=== PATIENT | female | born 1945 | race Caucasian/White ===

== ENCOUNTER → 2019-09-18 | Outpatient (CLI) | payer MEDICARE, OTHER ==
[~2019-09-18] MED LIST: AMIT10 PO; DICL75ER PO; OXYB5ER PO; TRAM50 PO; Unithroid100 MCG PO
[2019-09-18 15:25] LABS: Source, Urine Clean Catch
[2019-09-18 18:33] LABS: Appearance, Urine Clear (Clear); Bilirubin, Urine Neg (Neg); Blood, Urine Neg (Neg); Color, Urine Yellow (P-Yellow); Glucose Qualitative, Urine Neg (Neg); Ketones, Urine Neg (Neg); Leukocyte Esterase, Urine 2+ (Neg); Nitrite, Urine Neg (Neg); Protein, Urine Neg (Neg); Specific Gravity, Urine 1.015 (1.003-1.022); Urobilinogen, Urine NORM (Normal)
[2019-09-18 18:50] LABS: Bacteria Many /hpf; Squamous Epithelial Cells Few /hpf (Few); White Blood Cells, Urine 25-50 /hpf (0-5)
[2019-09-18 18:51] LABS: Mucus Light (0-Heavy)
== END | disposition home or self-care (01) ==
LOC: LAB 14:15 → LAB SHORT 14:15
PROVIDERS: Obstetrics & Gynecology
DX: R30.9 Painful micturition, unspecified (principal)
CPT/HCPCS: 81001; 87077; 87086; 87186

== ENCOUNTER 2019-10-10 09:13 | Day surgery (SDC) | payer MEDICARE, OTHER ==
[~2019-10-10] VITALS: Ht 149.9 cm; Wt 84.8 kg
[~2019-10-10 09:13] MED LIST changes: +B-121000 MC2 PO; +BORON PO; +Beta Carot10000 UNIT PO; +Daily Multiple1 EACH PO; +HYDCHL25 PO; +Lutein6 MG PO; +Vitamin E100 UNIT PO
--- NOTE | 2019-10-10 10:05 | NUR ---
10/10/19 Alexis Nieves CALL LIGHT WITHIN REACH.
== END 2019-10-10 11:37 | disposition home or self-care (01) ==
LOC: ORSCSDS 09:13
PROVIDERS: Ophthalmology
PROC: 08RJ3JZ Replacement of Right Lens with Synthetic Substitute, Percutaneous Approach (ICD-10-PCS; principal; 2019-10-10 10:30)
DX: H25.11 Age-related nuclear cataract, right eye (principal); I10 Essential (primary) hypertension; Z87.891 Personal history of nicotine dependence; G47.33 Obstructive sleep apnea (adult) (pediatric); E66.01 Morbid (severe) obesity due to excess calories; Z68.38 Body mass index [BMI] 38.0-38.9, adult; Z79.899 Other long term (current) drug therapy
CPT/HCPCS: J2001; J2250; J3010; J3301; J7040; V2632

== ENCOUNTER 2019-10-31 08:28 | Day surgery (SDC) | payer MEDICARE, OTHER ==
[~2019-10-31] VITALS: Ht 147.3 cm; Wt 84.6 kg
== END 2019-10-31 11:07 | disposition home or self-care (01) ==
LOC: ORSCSDS 08:28
PROVIDERS: Ophthalmology
PROC: 08RK3JZ Replacement of Left Lens with Synthetic Substitute, Percutaneous Approach (ICD-10-PCS; principal; 2019-10-31 10:00)
DX: H25.12 Age-related nuclear cataract, left eye (principal); I10 Essential (primary) hypertension; E66.01 Morbid (severe) obesity due to excess calories; Z68.39 Body mass index [BMI] 39.0-39.9, adult; Z79.899 Other long term (current) drug therapy
CPT/HCPCS: J2001; J2250; J3010; J3301; V2632

== ENCOUNTER 2020-08-19 10:46 | Day surgery (SDC) | payer MEDICARE | END 2020-08-20 14:31 | LOC: ORSCMMR 10:46 → SURS 18:33 | PROC: 0SRD0JA Replacement of Left Knee Joint with Synthetic Substitute, Uncemented, Open Approach (ICD-10-PCS; principal; 2020-08-19) | DX: M17.12 Unilateral primary osteoarthritis, left knee (principal); I10 Essential (primary) hypertension; Z87.891 Personal history of nicotine dependence; N18.2 Chronic kidney disease, stage 2 (mild); E03.9 Hypothyroidism, unspecified; E66.01 Morbid (severe) obesity due to excess calories; Z68.37 Body mass index [BMI] 37.0-37.9, adult; Z79.899 Other long term (current) drug therapy ==

== ENCOUNTER 2023-11-22 06:35 | Day surgery (SDC) | payer MEDICARE ==
[~2023-11-22] VITALS: Ht 144.8 cm; Wt 78.6 kg
[2023-11-22] VITALS (18 sets, daily range): BP systolic 101–176; BP diastolic 55–105
[~2023-11-22 06:35] MED LIST changes: +ALEVE ARTHRITI100 GM TOP; +ASPI81CH PO; +AZO PO; +Athenol325 MG PO; -B-121000 MC2 PO; +B-121000 MC7 PO; +BETACAROTENE PO; +CALCIUM CIT 311 EAC7 PO; +CLOBETASOL EMOL15 G1 TOP; +CURAMIN PO; -Daily Multiple1 EACH PO; +HYDROCORT 2.5%-30 GM TOP; +LOSA25 PO; +MERIBIN5 M1 PO; +MULTI VITAMIN1 EACH PO; +OCUVITE PO; +Percocet 5-3251 EACH PO; +VITAMIN D310 MC4 PO
--- NOTE | 2023-11-22 19:24 | NUR ---
SHIFT SUMMARY POD0 R TKA AQUACEL AND SCOT WRAP TO RLE. POLAR PACK IN PLACE. WORKED WITH PT DENIES N/T. EATING, DRINKING, VOIDING, TOLERATING PAIN MEDICATION. AOX4, USES CALL LIGHT.
[2023-11-23 00:36] VITALS: BP 111/63
[2023-11-23 04:50] VITALS: BP 113/63
[2023-11-23 05:03] LABS: BASOPHILS ABSOLUTE AUTO 0.02 K/mm3 (0.00-0.23); BASOPHILS PERCENT AUTO 0 % (0-2); EOSINOPHILS PERCENT AUTO 0 % (0-6); Hematocrit 35.1 % (33.0-51.0); Hemoglobin 11.7 g/dL (11.5-16.0); IMMATURE GRAN ABSOLUTE AUTO 0.09 K/mm3 (0.00-0.10); IMMATURE GRAN PERCENT AUTO 1 % (0-1); LYMPHOCYTES ABSOLUTE AUTO 1.29 K/mm3 (0.84-5.20); LYMPHOCYTES PERCENT AUTO 7 % (21-46); MONOCYTES ABSOLUTE AUTO 1.75 K/mm3 (0.16-1.47); MONOCYTES PERCENT AUTO 9 % (4-13); Mean Corpuscular HGB 30.7 pg (26.0-34.0); Mean Corpuscular HGB Conc 33.3 g/dL (31.5-36.5); Mean Corpuscular Volume 92 fL (80-100); NEUTROPHILS ABSOLUTE AUTO 16.55 K/mm3 (1.96-9.15); NEUTROPHILS PERCENT AUTO 84 % (41-73); Platelet Count 317 K/mm3 (150-400); RDW Coefficient Variation 14.3 % (11.7-14.2); RDW Standard Deviation 48.2 fL (35.1-46.3); Red Blood Cell Count 3.81 M/mm3 (3.80-5.20)
[2023-11-23 05:38] LABS: Bun/Creatinine Ratio 37.7 (12.0-20.0); Creatinine, Blood 0.8 mg/dL (0.40-1.00); Potassium, Blood 4.1 mmol/L (3.5-5.5)
[2023-11-23 06:31] VITALS: BP 102/68
[2023-11-23 07:30] VITALS: BP 119/64
--- NOTE | 2023-11-23 07:31 | NUR ---
SHIFT SUMMARY NOC. PT A/O X4. PT'S AQUACEL ON RIGHT KNEE IS C/D/I WITH POLAR PACK IN PLACE. PT MEDICATED FOR PAIN WITH RELIEF OF SYMPTOMS. PT AMBULATING TO THE BR, VOIDING, AND TOLERATING PO INTAKE. PT RESTED WITH EYES CLOSED AND CALL LIGHT IN REACH.
[2023-11-23] MEDS ORDERED: ASPI81CH PO (08:45)
[2023-11-23] MEDS ORDERED: Percocet 5-3251 EACH PO (08:46)
--- NOTE | 2023-11-23 10:14 | NUR ---
DISCHARGE NOTE: PATIENT WAS EDUCATED ON DISCHARGE INSTRUCTIONS. SHE VERBALIZED UNDERSTANDING OF INSTRUCTIONS AND HAD NO FURTHER QUESTIONS AT THIS TIME. IV WAS TAKEN OUT AND WNL. HARD PERSCRIPTION WAS PLACED IN DISCHARGE FOLDER. PAIN IS MANAGED WITH PO PAIN MEDS. HER RIGHT KNEE HAS AN AQUACEL THAT IS C/D/I. DENIES NUMBNESS OR TINGLING IN ALL EXTREMITIES. SHE IS A SBA WITH FWW AND GAIT BELT. PATIENT IS TOLERATING PO INTAKE AND IS VOIDING. SHE IS DRESSED AND HAS PERSONAL ITEMS IN THE ROOM GATHERED. PATIENT IS LAYING IN RECLINER CHAIR WITH LEGS ELEVATED AND CALL LIGHT IN REACH. PATIENT IS WAITING FOR HER RIDE TO COME PICK HER UP AROUND [id number] LATER TODAY TO TAKE HER HOME.
--- NOTE | 2023-11-23 13:08 | NUR ---
PATIENT WAS JUST WHEELCHAIRED OUT TO HER CAR. PATIENT HAD ALL PERSONAL BELONGINGS IN THE ROOM GATHERED. IV WAS TAKEN OUT AND WNL.
== END 2023-11-23 13:09 | disposition home or self-care (01) ==
LOC: ORSCMMR 06:35 → ORD 08:15 → ORSCMMR 08:15 → SURS 11:31 → ORSCMMR 11-23 13:09
PROVIDERS: Orthopaedic Surgery
PROC: 0SRC0JA Replacement of Right Knee Joint with Synthetic Substitute, Uncemented, Open Approach (ICD-10-PCS; principal; 2023-11-22 08:15)
DX: M17.11 Unilateral primary osteoarthritis, right knee (principal); Z96.652 Presence of left artificial knee joint; I10 Essential (primary) hypertension; E03.9 Hypothyroidism, unspecified; G47.33 Obstructive sleep apnea (adult) (pediatric); Z87.891 Personal history of nicotine dependence; Z79.899 Other long term (current) drug therapy
CPT/HCPCS: 36415; 73560-RT; 80048; 85025; 97110; 97116; 97162; A9270; C1713; C1776; J0171; J0690; J0735; J1885; J2795; J7120

== ENCOUNTER 2025-01-24 11:10 | Day surgery (SDC) | payer MEDICARE ==
[~2025-01-24] VITALS: Ht 144.8 cm; Wt 83.3 kg
[2025-01-24] VITALS (13 sets, daily range): BP systolic 110–158; BP diastolic 59–92
[~2025-01-24 11:10] MED LIST changes: +Bupivacaine 0.5% W/EPI 1:200000 SDV 30 ML Vial ONE; +Lactated Ringer's 1,000 ML IV SCH; +OXYB5 PO
--- NOTE | 2025-01-24 11:54 | NUR ---
History, Chart, Medications and Allergies reviewed before start of procedure. Pre-Op teaching done. Pt verbalizes understanding. Patient confirms NPO status and agrees with scheduled surgery. PT BELONGINGS PLACED UNDER GURNEY. PT PLACED GLASSES IN CASE AND PUT IN BELONGINGS BAG.
[2025-01-24] MEDS ORDERED: Dexamethasone Sod Phos 10 MG/ML 1ML VIAL ONE (12:13)
[2025-01-24] MEDS ORDERED: Ondansetron HCl 2 MG / ML 2ML Vial ONE (12:13)
[2025-01-24] MEDS ORDERED: propofoL 20 ML IV ONE (12:13)
[2025-01-24] MEDS ORDERED: Lidocaine HCl 2% 20 ML MDV ONE (12:13)
[2025-01-24] MEDS ORDERED: Rocuronium Bromide 10 MG/ML 5ML Injection IV ONE (12:13)
[2025-01-24] MEDS ORDERED: FentaNYL Citrate 50 MCG/ML 2 ML Injection ONE ×2 (12:13→13:44)
[2025-01-24] MEDS ORDERED: Ondansetron HCl 2 MG / ML 2ML Vial IV PRN (12:40)
[2025-01-24] MEDS ORDERED: HYDROmorphone HCl 0.5 MG/0.5 ML SYR IV PRN (12:40)
[2025-01-24] MEDS ORDERED: FentaNYL Citrate 50 MCG/ML 2 ML Injection IV PRN ×3 (12:40)
[2025-01-24] MEDS ORDERED: Labetalol HCL 5 MG/ML 4ML Injection (Single Dose) IV PRN (12:40)
[2025-01-24] MEDS ORDERED: Neostigmine Methylsulfate 5MG/5ML SYR ONE (13:09)
[2025-01-24] MEDS ORDERED: Glycopyrrolate 0.2 MG/ML 5ML VIAL ONE (13:09)
[2025-01-24] MEDS ORDERED: Ketorolac Tromethamine 30mg Vial ONE (13:12)
[2025-01-24] MEDS ORDERED: TraMADol HCl 50 MG Tab PO PRN (13:35)
--- NOTE | 2025-01-24 15:20 | NUR ---
Patient up to Ambulate independently WITH CANE. Gait steady. Discharge instructions reviewed with patient. Patient verbalizes understanding. Copy given to patient to take home, [facility]. Patient States Post-Procedure ride home has been arranged. Discharged via wheelchair to private car for ride home. PT TOLERATING PO. REPORTS PAIN TOLERABLE AND READY TO GO HOME. PT REPORTS HAVING PAIN MEDICATION AT HOME ALREADY. PT ON ROOM AIR.
== END 2025-01-24 15:20 | disposition home or self-care (01) ==
LOC: ORSCMMR 11:10 → ORD 12:30 → ORSCMMR 12:30
PROVIDERS: Obstetrics & Gynecology
PROC: 0UT24ZZ Resection of Bilateral Ovaries, Percutaneous Endoscopic Approach (ICD-10-PCS; principal; 2025-01-24 12:30)
PROC: 0UT74ZZ Resection of Bilateral Fallopian Tubes, Percutaneous Endoscopic Approach (ICD-10-PCS; principal; 2025-01-24 12:30)
DX: R10.2 Pelvic and perineal pain (principal); N83.292 Other ovarian cyst, left side; N83.291 Other ovarian cyst, right side; N94.89 Other specified conditions associated with female genital organs and menstrual cycle; I10 Essential (primary) hypertension; Z87.891 Personal history of nicotine dependence; E03.9 Hypothyroidism, unspecified; G47.33 Obstructive sleep apnea (adult) (pediatric); E66.9 Obesity, unspecified; Z68.31 Body mass index [BMI] 31.0-31.9, adult
CPT/HCPCS: 88108; 88305; A9270; J1100; J1885; J2405; J2704; J2710; J3010; J7120

== ENCOUNTER → 2025-02-28 | Outpatient (CLI) | payer MEDICARE ==
[~2025-02-28] MED LIST changes: -Bupivacaine 0.5% W/EPI 1:200000 SDV 30 ML Vial ONE; -Lactated Ringer's 1,000 ML IV SCH
== END ==
LOC: LAB SHORT 18:55 → LAB 18:55
DX: N39.0 Urinary tract infection, site not specified (principal); R31.9 Hematuria, unspecified
CPT/HCPCS: 87086